=== PATIENT | female | born 1945 | race American Indian/Alaskan Native ===

== ENCOUNTER 2021-03-17 13:12 | Emergency (ER) | payer MEDICARE, OTHER ==
--- NOTE | 2021-03-17 13:50 | Event Note ---
ED Screening Note ED Screening Note: pt presents with right hip pain that began a week and a half ago states she also has right knee pain which she believes is due to overcompensating for the hip no calf pain or leg swelling no recent surgery, no recent travel no fall or injury pmhx none allergy none This initial assessment/diagnostic orders/clinical plan/treatment(s) is/are subject to change based on patients health status, clinical progression and re- assessment by fellow clinical providers in the ED. Further treatment and workup at subsequent clinical providers discretion. Patient/guardian urged not to elope from the ED as their condition may be serious if not clinically assessed and managed. Initial orders include: xr right hip
--- NOTE | 2021-03-17 14:35 | XRay Report ---
RIGHT HIP 2 VIEW(S) INDICATION / CLINICAL INFORMATION: right hip pain COMPARISON: None available. FINDINGS: BONES / JOINT(S): No acute fracture or subluxation. No significant arthritis. SOFT TISSUES: No significant abnormality. ADDITIONAL FINDINGS: Incidental note of calcification within the pelvis, likely representing a degene rated fibroid. Signer Name: Andrew Anguiano DO Signed: 03/17/2021 2:30 PM Workstation Name: [id number]
[2021-03-17 17:02] VITALS: BP 163/103
[2021-03-17] MEDS ORDERED: CYCLOBENZAPRINE 10 MG TAB PO ONE (17:17)
[2021-03-17] MEDS ORDERED: KETOROLAC 30 MG/1 ML INJ IM ONE (17:17)
--- NOTE | 2021-03-17 17:27 | Emergency Department Report ---
ED General Adult HPI - General Chief complaint: Extremity Injury, Lower Stated complaint: right hip pain Time Seen by Provider: 03/17/21 13:49 Source: patient Mode of arrival: Wheelchair Limitations: Physical Limitation - History of Present Illness Initial comments: 75-year-old female patient with history of nonmetastatic breast cancer in remission presents to the emergency department with complaints of right groin pain for 2 weeks. No preceding fall, trauma, or injury. Pain is worse with standing and walking. Pain is relieved with rest. Patient has been taking Tylenol and Motrin with limited relief. No history of similar symptoms. Patient has a primary care provider but has not yet made an appointment. Denies fever, chills, knee pain, ankle pain, foot pain, paresthesias, numbness, weakness. Denies all other complaints at this time. Severity scale (0 -10): 10 - Related Data Previous Rx's Medication Instructions Recorded Last Taken Type Lidocaine [Lidoderm] 1 each TP BID #20 adh..patch 03/17/21 Unknown Rx Naproxen 500 mg PO BID #20 tablet 03/17/21 Unknown Rx Allergies Allergy/AdvReac Type Severity Reaction Status Date / Time No Known Allergies Allergy Unverified 03/17/21 13:35 ED Review of Systems ROS: Stated complaint: PAIN IN LEGS CANT WALK Other details as noted in HPI Other: GENERAL: Negative for fever. CARDIOVASCULAR: Negative for chest pain. PULMONARY: Negative for shortness of breath. GASTROINTESTINAL: Negative for abdominal pain. MUSCULOSKELETAL: Positive for right groin pain. NEUROLOGICAL: Negative for headache. INTEGUMENTARY: Negative for rash. ED Past Medical Hx - Past Medical History Hx of Cancer: Yes - Surgical History Additional Surgical History: DOUBLE MASTECTOMY - Social History Smoking Status: Never Smoker - Medications Home Medications: Home Medications Medication Instructions Recorded Confirmed Last Taken Type Lidocaine [Lidoderm] 1 each TP BID #20 adh..patch 03/17/21 Unknown Rx Naproxen 500 mg PO BID #20 tablet 03/17/21 Unknown Rx ED Physical Exam - General Limitations: Physical Limitation - Other Other exam information: General: Awake, appropriately interactive, no acute distress. Neck: Supple. Full range of motion intact. Cardiovascular: Normal peripheral perfusion. Pulmonary: No respiratory distress. Patient is speaking normally without use of accessory muscles. Abdomen: Soft, nontender, nondistended. Skin: No apparent rashes or lesions. Neurological: No facial asymmetry. Speech is clear. Follows commands. Patient is alert and oriented. Musculoskeletal: Tenderness to palpation along the right groin without obvious deformity or dislocation. No bony tenderness. Patient is weightbearing without assistance upon entering the examination room. No rotational deformity or leg length discrepancy. Distal neurovascular and motor/sensory function intact. Psych: Cooperative. Appropriate mood and affect. ED Course Vital Signs 03/17/21 03/17/21 13:36 16:53 Temperature 98.3 F 97.4 F L Pulse Rate 59 L 54 L Respiratory 18 20 Rate Blood Pressure 145/88 Blood Pressure 163/103 [Right] O2 Sat by Pulse 94 98 Oximetry ED Medical Decision Making - Radiology Data Differential diagnosis including but not limited to: sprain, strain, fracture, contusion, dislocation, hernia Patient presents to the emergency department with complaints of nontraumatic right hip pain for 2 weeks. Pain is no worse today. She is afebrile, hemodynamically stable, neurovascularly intact, ambulatory without assistance. X-rays ordered by refrigerator glazier prior to MSE without acute process. History and exam findings suggestive of strain/sprain. No clinical indication for further diagnostic work-up on an emergent basis at this time. Patient will be discharged home with appropriate analgesics and referred to primary care provider for close outpatient follow-up. Patient expressed understanding and is agreeable to plan of care. Strict return precautions provided. Repeat exam is unremarkable and benign. History, exam, diagnostic testing, and current condition do not suggest worrisome pathology to warrant further testing, continued ED treatment, admission, or surgical evaluation at this point. Given the low probability of a significant medical illness, it would be more likely to result in harm than benefit to perform further testing at this stage. Discussed findings, presumptive diagnosis, need for follow-up and specific signs/symptoms that should prompt immediate return to the emergency department. Instructions were explained in detail to the patient in addition to giving written discharge information. Patient expressed understanding and was given the opportunity to ask questions, all of which were satisfactorily answered prior to discharge home. Critical care attestation.: If time is entered above; I have spent that time in minutes in the direct care of this critically ill patient, excluding procedure time. ED Disposition Clinical Impression: Right groin pain Disposition: DC-01 TO HOME OR SELFCARE Is pt being admited?: No Does the pt Need Aspirin: No Condition: Stable Instructions: Muscle Strain Additional Instructions: Take Tylenol every 4 hours as needed for pain. Take Naprosyn twice daily with food as needed for pain. Apply Lidoderm patches to affected area as needed for pain. Apply heat to affected area as needed for pain. Gradually advance physical activity slowly as tolerated. Follow-up with primary care provider this week. Call tomorrow to schedule an appointment. See referral information below. Return to the emergency department immediately for new or worsening symptoms. Prescriptions: Lidocaine [Lidoderm] 1 each TP BID #20 adh..patch Naproxen 500 mg PO BID #20 tablet Referrals: [facility] [Provider Group] - 3-5 Days Time of Disposition: 17:28
== END 2021-03-17 18:11 | disposition home or self-care (01) ==
LOC: ED 13:12
DX: M25.551 Pain in right hip (principal); R10.30 Lower abdominal pain, unspecified; Z98.890 Other specified postprocedural states; Z79.899 Other long term (current) drug therapy
CPT/HCPCS: 73502; 96372; 99283; J1885